=== PATIENT | male | born 1975 | race Caucasian/White ===

== ENCOUNTER 2023-10-12 10:56 | Outpatient (OUT) | payer BC, SELFPAY ==
--- NOTE | 2023-10-12 11:05 | ECG_ITS ---
[facility] Test Date: 2023-10-12 Pat Name: AGUILAR BANGURA Department: Room: - Gender: Male [place]: : 1975 Requested By: [id number] Order Number: [id number] Reading MD: FRED GAYLE Measurements Intervals [place] Rate: 80 P: 65 SD: 139 QRS: 48 QRSD: 91 T: 45 QT: 378 QTc: 439 Interpretive Statements SINUS RHYTHM No previous ECG available for comparison Electronically Signed On 10-13-2023 4:57:26 EST by FRED GAYLE
[2023-10-12 12:00] LABS: Basophils Absolute Auto 0.1 10^3/uL (0.0-0.1); Basophils Percent Auto 0.7 % (0.2-2.0); Eosinophils Absolute Auto 0.3 10^3/uL (0.0-0.7); Hemoglobin 7.1 g/dL (14.0-18.0); Immature Granulocytes Pct Auto 1.1 % (0.0-0.5); Lymphocytes Absolute Auto 1.4 10^3/uL (1.2-3.8); Lymphocytes Percent Auto 14.7 % (20.5-60.0); Mean Corpuscular HGB Conc 30.6 g/dL (29.9-35.2); Mean Corpuscular Hemoglobin 26.9 pg (25.9-34.0); Mean Corpuscular Volume 87.9 fL (80.0-94.0); Mean Platelet Volume 9.8 fL (9.5-13.5); Monocytes Absolute Auto 0.8 10^3/uL (0.3-0.8); Monocytes Percent Auto 8.4 % (1.7-12.0); Neutrophils Absolute Auto 6.8 10^3/uL (1.4-6.5); Neutrophils Percent Auto 72.1 % (43.0-75.0); Platelet Count 488 10^3/uL (150-450); Red Blood Count 2.64 10^6/uL (4.70-6.10); Red Cell Distribution Width 19.7 % (11.0-15.0); White Blood Count 9.4 10^3/uL (4.0-11.0)
[2023-10-12 12:29] LABS: Anion Gap 10.1; BUN Creatinine Ratio 22.2; Calcium 8.4 mg/dL (8.5-10.1); Carbon Dioxide 28.8 mmol/L (21.0-32.0); Chloride 107 mmol/L (98-107); Estimated GFR (African America >60 (>=60); Estimated GFR (Non-African Ame >60 (>=60); Glucose 87 mg/dL (74-106); Potassium 3.9 mmol/L (3.5-5.1); Sodium 142 mmol/L (136-145)
[2023-10-12 12:40] LABS: Hematocrit 23.2 % (42.0-54.0)
== END 2023-10-12 10:57 | disposition home or self-care (01) ==
LOC: PST 11:00
PROVIDERS: PCP Family Medicine; Visit Provider Urology
DX: Z01.812 Encounter for preprocedural laboratory examination (principal); N20.1 Calculus of ureter; N13.30 Unspecified hydronephrosis
CPT/HCPCS: 80048; 85025; 93005

== ENCOUNTER 2023-10-21 12:05 | Day surgery (SDC) | payer BC, SELFPAY ==
[2023-10-12 11:31] VITALS: BP 112/65; PULSE 89; RESP 18; TEMP 36.6; O2SAT 99; BMI 27.1
[2023-10-21] VITALS (13 sets, daily range): BP systolic 110–144; BP diastolic 67–85; PULSE 72–92; RESP 11–20; TEMP 36.2–36.3; O2SAT 98–100; BMI 27.5
--- NOTE | 2023-10-21 | XR_ITS ---
[address] [address] Patient Name: AGUILAR BANGURA MRN: [id number] date: 1975 Sex: M Assigned Patient Location: [facility] Current Patient Location: Accession/Order Number: [id number] Exam Date: 10/21/2023 14:15 Report Date: 10/22/2023 07:17 At the request of: COLLINS AGUILAR Procedure: XR urethrogram retrograde EXAM: XR urethrogram retrograde HISTORY: LEFT KIDNEY STONE COMPARISON: None. TECHNIQUE: Intraprocedural spot fluoroscopic image. FINDINGS: A single frontal fluoroscopic image demonstrates retrograde filling of the upper collecting system with suspected obstructing stone within proximal ureter. XR/XR urethrogram retrograde IMPRESSION: Obstructing stone within proximal ureter. Electronically authenticated by: WADE LORENZO Date: 10/22/2023 07:17
[2023-10-21] MEDS: LACTATED RINGER'S SOLUTION 1,000 ML 75 ML IV (12:34)
[2023-10-21] MEDS: CEFAZOLIN SODIUM/DEXTROSE,ISO 2 GM/50 ML PIGGYBACK IV (13:53)
[2023-10-21] MEDS: IOHEXOL 300 MG/ML - 50 ML BTL INJ (14:18)
[2023-10-21] MEDS: LACTATED RINGER'S SOLUTION 1,000 ML 50 ML IV (14:46)
--- NOTE | 2023-10-21 15:36 | P.URON_ITS ---
Urology Surgery Operative Note Operative Note Procedure Date: 10/21/23 Time Out Performed: yes Pre-op Diagnosis: Left mid ureteral stone Post-op Diagnosis: same as pre-op Procedures performed: Cystoscopy, left retrograde pyelogram, ureteroscopy with laser lithotripsy/stone extraction, stent placement Anesthesia: GETA (ET tube, Dr. Coronado) Primary Surgeon: aMi Ridley Complications: none Estimated blood loss (mL): 0 Findings: Mild bilobar prostatic hypertrophy with elevated bladder neck. No bladder tumors, trabeculations or lesions. Radiopaque left mid ureteral stone. L RPG- filling defect at mid ureter consistent with known stone, moderate-severe proximal hydronephrosis with mo derately blown out calyces. Hard, impacted mid ureteral stone underwent uncomplicated laser lithotripsy. Stone was impacted with pale scar just distal to stone. Specimens: left ureteral stone Drains: 6Fr x 22-32 cm JJ left ureteral stent Incision: none Indications for Procedures: 48 year old male with history of gastric bleeding incidentally found to have a 14 x 7 mm left mid ureteral stone burden with moderate hydronephrosis 05/2023. He failed to follow up in a timely fashion despite multiple attempts from our office. After discussion of risks/benefits of management options, he elected to proceed with cystoscopy, left retrograde pyelogram, ureteroscopy with laser lithotripsy/stone extraction, ureteral stent placement under general anesthesia. Risks were discussed including but not limited to bleeding, pain, infection, damage to surrounding structures, inability to treat the stone/place a stent, and need for additional procedures. The patient understands the stent is not permanent and needs to be removed or exchanged within 3 months to prevent encrustation, infection, invasive procedures and/or permanent renal damage. Elevated risks of ureteral stricture discussed given length of time with ureteral stone. Detailed description of Procedure: After informed consent was obtained, the patient was brought to the operating room and transferred onto the operating table in supine position. Sequential compression devices were placed on bilateral lower extremities. The patient received the appropriate dose of preoperative IV antibiotics and general anesthesia was induced. They were positioned in modified dorsolithotomy with the appropriate pressure points padded, prepped, and draped in the usual sterile fashion for this procedure. An operative safety timeout was performed confirming the patient's identity, laterality and procedure, and all present agreed to proceed. I began by inserting a 22 Georgian rigid cystoscope with 30 degree lens into the patient's urethra and bladder without difficulty. There were no bladder tumors, lesions, stones or foreign bodies. Bilateral ureteral orifices were orthotopic and patent. I turned my attention to the left ureteral orifice and a 6- Georgian open-ended catheter was inserted into the ureteral orifice and dilute contrast was injected for retrograde pyelogram with findings as above. A Sensor wire was inserted into the ureter up to the renal pelvis confirmed on fluoroscopy. Next a semirigid ureteroscope was inserted along the wire to get access to the ureteral stone, noted to be impacted. A 275 ?m Thulium:YAG laser fiber was used to break the stone into fragments which were then removed with a 1.8 tipless nitinol basket. After the stone was adequately treated, a full ureteroscopy to the renal pelvis was performed confirming no significant residual stones or fragments remained. Contrast was injected noting prior retained urine in 2 blown out calyces in upper/mid pole. No extravasation or filling defects. No remaining radiopaque stones noted on fluoroscopy. A pull down ureteroscopy was performed confirming no stones remained in the ureter. The wire was backloaded through the cystoscope and 6Fr x 22-32cm JJ variable length ureteral stent was advanced over the wire, noting adequate curl in the renal pelvis and bladder on fluoroscopic and direct visualization. The bladder was drained and irrigated of stones with Elick evacuator, and inspected one final time to ensure adequate position of stent and no undue trauma to the bladder was done. The stones were sent for pathology and the cystoscope was removed. The patient tolerated the procedure well without complication. The patient was awakened from anesthesia and sent to PACU in stable condition. Plan: Discharge home with stent pain medications. Follow up after 1-2 weeks given impacted stone for in-office cystoscopy, stent removal. Other Provider present: No Post Operative care instructions: See discharge instructions Attending Doc Confirm Attending Attestation: Yes
--- NOTE | 2023-10-21 17:08 | PC.NURSE ---
1552- Patient voided scant amount of blood tinged urine. Patient feels pressure .
--- NOTE | 2023-10-21 17:11 | PC.NURSE ---
1622- Patient still c/o pressure in the bladder/penis area. Patient sitting on toilet and voids scant amount of blood tinged urine.
--- NOTE | 2023-10-21 17:18 | PC.NURSE ---
7522- Patient still c/o pressure to bladder/penis area. Pain level 7/8. Patient assisted back to bed and bladder scanned. No urine noted in bladder on scan.
[2023-10-21] MEDS: OXYBUTYNIN CHLORIDE 5 MG TAB XL PO ×2 (17:24→18:31)
--- NOTE | 2023-10-21 17:35 | PC.NURSE ---
1710- Dr. Ridley informed via telephone of patient's level of pain, pressure sensation in bladder and the result of the bladder scan. New orders received.
--- NOTE | 2023-10-21 17:39 | PC.NURSE ---
1724- Medicated with Oxybutynin as ordered per Dr. Ridley. Cassie and water given per patient request. Patient's remains at bedside.
[2023-10-21] MEDS: PHENAZOPYRIDINE 100 MG TABLET 200 MG PO (18:31)
--- NOTE | 2023-10-21 19:06 | PC.NURSE ---
1745- Patient still unable to void. Patient agrees to indwelling berrios catheter placement at this time. #16 Zambian berrios catheter placed without difficulty. 250 cc of blood tinged urine noted in berrios bag. Patient tolerated it well. Cath secure placed.
--- NOTE | 2023-10-21 19:09 | PC.NURSE ---
1831- Dr Ridley updated on patients condition. Patient medicated with Oxybutynin and Pyridium as ordered.
[2023-10-28 21:07] LABS: Calcium Oxalate Dihydrate 50 % (.); Calcium Oxalate Monohydrate 50 % (.); Size 6x4 mm (.)
== END 2023-10-21 19:00 | disposition home or self-care (01) ==
PROVIDERS: PCP Family Medicine; Visit Provider Urology
PROC: (CPT 918; principal; 2023-10-21 13:40)
DX: N13.2 Hydronephrosis with renal and ureteral calculous obstruction (principal); F41.9 Anxiety disorder, unspecified; M19.90 Unspecified osteoarthritis, unspecified site; D50.9 Iron deficiency anemia, unspecified; G47.00 Insomnia, unspecified; Z98.84 Bariatric surgery status; R35.0 Frequency of micturition; N40.1 Benign prostatic hyperplasia with lower urinary tract symptoms
CPT/HCPCS: 52356; 36415; 51702; 51798; 74420; 82365; 85014; 85018; 99999; J2704; Q9967